=== PATIENT | male | born 1935 | race Caucasian/White ===

== ENCOUNTER 2016-11-06 18:07 | Inpatient (IN) | payer OTHER, BC ==
[~2016-11-06] VITALS: Ht 167.6 cm; Wt 77.8 kg
[~2016-11-06 18:07] MED LIST: ALPHAGAN 0100 DROP/5 RIGHT EYE; AMLODIPINE BESY10 MG PO; CENTRUM SILVER1 EAC3 PO; FLOMAX0.4 MG PO; FLONASE16 G1 BOTH NARES; FUROSEMIDE40 MG PO; IPRATROPIU0.2 MG/1 M IH; LATANOPROST2.5 ML BOTH EYES; LISINOPRIL20 MG PO; LOVASTATIN20 MG PO; LOW DOSE ASPIRI81 M1 PO; PRESERVISIO1 CAPSULE PO; PROAIR HFA8.5 GM IH; PROVENTIL,2.5 MG/3 M IH; SILDENAFIL20 MG PO; SPIRIVA1 INHALATI IH; SYMBICORT60 INHALAT IH; TAMSULOSIN HCL0.4 MG PO
[2016-11-06 18:37] LABS: BASE EXCESS 0.2 mEq/L (-3 to +3); BICARBONATE 26.9 mEq/L (22-26); CARBOXY HGB 1.9 % (0-5); METHEMOGLOBIN 1.4 % (0-1.5); PCO2 51 mm Hg (35-45); PO2 502 mm Hg (80-100); pH 7.33 (7.35-7.45)
[2016-11-06 18:38] LABS: SITE RR
[2016-11-06 18:39] LABS: COMMENTS - BLOOD GASES AC+ pt on 8l cbnt; CONTINUOUS POS AIRWAY PRESSURE 5 cm H2O; DEVICE 840 VENTILATOR; FI02 100 %; MODE NIPPV; PRES. SUPPORT 15 CM/H2O; TOTAL RESP RATE 19 resp/min
[2016-11-06 18:54] LABS: EOSINOPHIL (%) 5.7 % (0-5); EOSINOPHIL COUNT 0.5 K/uL (0-0.3); HEMATOCRIT 40.5 % (38.0-50.0); IMMATURE GRANULOCYTE (%) 0.3 % (0.0-0.7); LYMPHOCYTE COUNT 1.4 K/uL (1.0-2.8); MCH 31.3 PG (29.0-34.0); MCHC 32.6 G/DL (30.0-36.0); MEAN PLAT.VOLUME 9.5 uM^3 (9.0-12.4); MONOCYTE (%) 8.5 % (3-12); MONOCYTE COUNT 0.7 K/uL (0-0.8); NEUTROPHIL (%) 69.1 % (45-76); PLATELET COUNT 226 K/uL (156-360); RBC DIS.WIDTH-CV 12.4 % (11.8-14.6); RBC DIS.WIDTH-SD 43.9 % (39-53); RED BLOOD COUNT 4.22 M/uL (4.00-5.50); WHITE BLOOD COUNT 8.7 K/uL (4.1-10.2)
[2016-11-06 19:00] LABS: INTER. NORMALIZED RATIO 0.9; PROTHROMBIN TIME 10.1 SEC (10.2-12.9)
[2016-11-06 19:03] LABS: PTT 28.5 SEC (25-37)
[2016-11-06 19:07] LABS: CHLORIDE 107 mEq/L (99-109); POTASSIUM 3.8 mEq/L (3.7-5.4); SODIUM 141 mEq/L (136-147)
[2016-11-06 19:08] LABS: MAGNESIUM 2.8 mg/dL (1.3-2.7)
[2016-11-06 19:09] LABS: GLUCOSE 92 mg/dL (70-99)
[2016-11-06 19:10] LABS: ANION GAP 10 MEQ/L (2-14)
[2016-11-06 19:13] LABS: GFR ESTIMATE (CALCULATED) > 59 mL/min/
[2016-11-06 19:14] LABS: UREA NITROGEN (BUN) 12 mg/dL (9-23)
[2016-11-06 19:17] LABS: TROP-I INTERPRETATION NEGATIVE; TROPONIN-I < 0.01 ng/mL (0.0-0.30)
[2016-11-06] MEDS ORDERED: ATROVENT H200 INHALA IH (22:14)
[2016-11-06] MEDS ORDERED: DUONEB 2.5-0.5 M3 ML AEROSOL (22:14)
[2016-11-06 23:55] VITALS: BP 138/72
[2016-11-07 04:33] VITALS: BP 180/83
[2016-11-07 08:25] VITALS: BP 169/83
[2016-11-07 12:18] VITALS: BP 149/71
[2016-11-07 16:46] VITALS: BP 140/65
[2016-11-07 20:01] VITALS: BP 137/64
[2016-11-07 23:56] VITALS: BP 132/68
[2016-11-08 04:03] VITALS: BP 155/80
[2016-11-08 08:18] VITALS: BP 151/86
[2016-11-08 15:38] VITALS: BP 139/62
[2016-11-08 19:27] VITALS: BP 154/75
[2016-11-08 23:04] VITALS: BP 136/72
[2016-11-09 03:58] VITALS: BP 166/75
[2016-11-09 05:57] LABS: ANION GAP 7 MEQ/L (2-14); CHLORIDE 106 MEQ/L (99-109); GFR ESTIMATE (CALCULATED) > 59 mL/min/; POTASSIUM 4.3 MEQ/L (3.7-5.4); SAMPLE HEMOLYSIS CHECK 0; SAMPLE ICTERIC CHECK 0; SAMPLE LIPEMIA CHECK 0; SODIUM 142 MEQ/L (136-147); UREA NITROGEN (BUN) 18 mg/dL (9-23)
[2016-11-09 05:58] LABS: GLUCOSE 141 mg/dL (70-99)
[2016-11-09 08:14] VITALS: BP 167/77
[2016-11-09 16:28] VITALS: BP 151/73
[2016-11-09 19:51] VITALS: BP 141/71
[2016-11-09 23:56] VITALS: BP 153/67
[2016-11-10 04:08] VITALS: BP 157/76
[2016-11-10 08:15] VITALS: BP 163/77
[2016-11-10 09:59] VITALS: BP 177/80
[2016-11-10 10:47] LABS: HEMATOCRIT 44.3 % (38.0-50.0); MCH 31.2 PG (29.0-34.0); MCHC 32.5 G/DL (30.0-36.0); MCV 95.9 FL (86-99); MEAN PLAT.VOLUME 9.9 uM^3 (9.0-12.4); PLATELET COUNT 251 K/uL (156-360); RBC DIS.WIDTH-CV 12.6 % (11.8-14.6); RBC DIS.WIDTH-SD 44.3 % (39-53); RED BLOOD COUNT 4.62 M/uL (4.00-5.50); WHITE BLOOD COUNT 11.6 K/uL (4.1-10.2)
[2016-11-10 11:04] VITALS: BP 156/70
[2016-11-10 11:09] LABS: ANION GAP 6 MEQ/L (2-14); CHLORIDE 103 MEQ/L (99-109); GFR ESTIMATE (CALCULATED) > 59 mL/min/; GLUCOSE 200 mg/dL (70-99); POTASSIUM 4.1 MEQ/L (3.7-5.4); SAMPLE HEMOLYSIS CHECK 0; SAMPLE ICTERIC CHECK 0; SAMPLE LIPEMIA CHECK 0; SODIUM 139 MEQ/L (136-147); UREA NITROGEN (BUN) 22 mg/dL (9-23)
[2016-11-10 11:25] LABS: BICARBONATE 30.5 mEq/L (22-26); CARBOXY HGB 2.1 % (0-5); COMMENTS - BLOOD GASES A+C+; DEVICE NC; METHEMOGLOBIN 1.8 % (0-1.5); O2 FLOW 2 L/MIN; PCO2 47 mm Hg (35-45); PO2 92 mm Hg (80-100); SITE RR; pH 7.42 (7.35-7.45)
[2016-11-10 15:43] VITALS: BP 134/65
[2016-11-10 19:48] VITALS: BP 176/70
[2016-11-11 00:54] VITALS: BP 142/75
[2016-11-11 08:06] VITALS: BP 138/70
[2016-11-11 11:08] VITALS: BP 132/70
[2016-11-11 15:55] VITALS: BP 137/61
[2016-11-11 19:09] LABS: POINT-OF-CARE METER ID UU14208753
[2016-11-11 19:52] VITALS: BP 170/84
[2016-11-11 23:42] VITALS: BP 147/67
[2016-11-12 03:55] VITALS: BP 177/76
[2016-11-12 07:27] VITALS: BP 148/82
[2016-11-12 15:53] VITALS: BP 148/68
[2016-11-12 20:35] VITALS: BP 148/68
[2016-11-13 00:31] VITALS: BP 120/60
[2016-11-13 03:48] VITALS: BP 142/68
[2016-11-13 08:00] VITALS: BP 173/77
[2016-11-13] MEDS ORDERED: PREDNISONE20 MG PO ×2 (09:12→09:18)
[2016-11-13] MEDS ORDERED: POLYETHYLENE GL17 GM PO (09:12)
[2016-11-13] MEDS ORDERED: CEFTIN500 MG PO (09:12)
[2016-11-13] MEDS ORDERED: DOCUSATE SODIU100 MG PO (09:12)
[2016-11-13 11:51] VITALS: BP 144/63
== END 2016-11-13 15:50 | disposition home health service (06) | DRG 191 ==
LOC: EME 18:07 → 3EAST 21:19 → EDOF 21:19 → ENRESERV 21:22 → CANRESERV 21:22 → ENRESERV 21:34 → 3EAST 22:50
PROVIDERS: Emergency Medicine; Family Medicine; Internal Medicine
DX: J44.0 Chronic obstructive pulmonary disease with (acute) lower respiratory infection (principal); J96.11 Chronic respiratory failure with hypoxia; Z94.2 Lung transplant status; R06.89 Other abnormalities of breathing; Z99.81 Dependence on supplemental oxygen; J44.1 Chronic obstructive pulmonary disease with (acute) exacerbation; J20.9 Acute bronchitis, unspecified; I10 Essential (primary) hypertension; I45.10 Unspecified right bundle-branch block; K59.00 Constipation, unspecified; Z85.118 Personal history of other malignant neoplasm of bronchus and lung; R73.9 Hyperglycemia, unspecified; T38.0X5A Adverse effect of glucocorticoids and synthetic analogues, initial encounter; Z87.891 Personal history of nicotine dependence
CPT/HCPCS: 36600; 71010; 80048; 82803; 82948; 83735; 84484; 85025; 85027; 85610; 85730; 93005; 94002; 94640; 94640 76; 94644; 94667; 94668; 94760; 94799; 99202; 99281; 99285; J0456; J0696; J1100; J1650; J1815; J1940; J2930; J3475; J7030; J7050; J7512; J7644

== ENCOUNTER 2017-01-27 19:52 | Inpatient (IN) | payer OTHER, BC ==
[~2017-01-27] VITALS: Ht 167.6 cm; Wt 73.1 kg
[~2017-01-27 19:52] MED LIST changes: +ATROVENT H200 INHALA IH; +CEFTIN500 MG PO; +DOCUSATE SODIU100 MG PO; +DUONEB 2.5-0.5 M3 ML AEROSOL; +POLYETHYLENE GL17 GM PO; +PREDNISONE20 MG PO
[2017-01-27 20:40] LABS: HEMATOCRIT 39.9 % (38.0-50.0); MCHC 33.3 G/DL (30.0-36.0); MCV 96.1 FL (86-99); MEAN PLAT.VOLUME 9.1 uM^3 (9.0-12.4); PLATELET COUNT 242 K/uL (156-360); RBC DIS.WIDTH-CV 12.7 % (11.8-14.6); RBC DIS.WIDTH-SD 44.9 % (39-53); RED BLOOD COUNT 4.15 M/uL (4.00-5.50); WHITE BLOOD COUNT 5.8 K/uL (4.1-10.2)
[2017-01-27 20:52] LABS: CHLORIDE 104 mEq/L (99-109); POTASSIUM 3.7 mEq/L (3.7-5.4); SODIUM 141 mEq/L (136-147)
[2017-01-27 20:53] LABS: GLUCOSE 98 mg/dL (70-99)
[2017-01-27 20:55] LABS: ANION GAP 11 MEQ/L (2-14)
[2017-01-27 20:57] LABS: GFR ESTIMATE (CALCULATED) > 59 mL/min/
[2017-01-27 20:58] LABS: UREA NITROGEN (BUN) 10 mg/dL (9-23)
[2017-01-27 21:40] LABS: TROP-I INTERPRETATION NEGATIVE; TROPONIN-I 0.01 ng/mL (0.0-0.30)
[2017-01-27 21:47] LABS: BASE EXCESS 3.7 mEq/L (-3 to +3); BICARBONATE 29.7 mEq/L (22-26); CARBOXY HGB 2.1 % (0-5); METHEMOGLOBIN 1.4 % (0-1.5); PCO2 49 mm Hg (35-45); PO2 92 mm Hg (80-100); pH 7.39 (7.35-7.45)
[2017-01-27 21:48] LABS: COMMENTS - BLOOD GASES C+; DEVICE BREATHING TREATMENT; O2 FLOW 7 L/MIN; SITE RIGHT BRACHIAL; TOTAL RESP RATE 21 resp/min
[2017-01-27] MEDS ORDERED: TAMSULOSIN HCL0.4 MG PO (23:55)
[2017-01-27] MEDS ORDERED: ATROVENT 00.5 MG/2.5 IH (23:56)
[2017-01-27] MEDS ORDERED: SIMBRINZA 1%-0.28 ML RIGHT EYE (23:57)
[2017-01-27] MEDS ORDERED: ALBUTEROL2.5 MG/3 M IH (23:58)
[2017-01-28] VITALS (7 sets, daily range): BP systolic 127–165; BP diastolic 60–74
[2017-01-28] MEDS ORDERED: MIRALAX17 GM PO (00:02)
[2017-01-28] MEDS ORDERED: MUCINEX1200 MG PO (00:04)
[2017-01-28] MEDS ORDERED: ALEVE220 MG PO (00:05)
[2017-01-28 07:21] LABS: TROP-I INTERPRETATION NEGATIVE; TROPONIN-I < 0.01 ng/mL (0.0-0.30)
[2017-01-28 15:09] LABS: TROP-I INTERPRETATION NEGATIVE; TROPONIN-I < 0.01 ng/mL (0.0-0.30)
[2017-01-29 00:10] VITALS: BP 141/68
[2017-01-29 04:27] VITALS: BP 143/72
[2017-01-29 08:19] VITALS: BP 143/65
[2017-01-29 11:55] VITALS: BP 134/66
[2017-01-29 16:18] VITALS: BP 149/71
[2017-01-29 23:20] VITALS: BP 146/70
[2017-01-30 03:46] VITALS: BP 138/65
[2017-01-30 12:13] VITALS: BP 145/66
[2017-01-30 16:30] VITALS: BP 150/71
[2017-01-30 19:31] VITALS: BP 151/70
[2017-01-30 23:14] VITALS: BP 140/64
[2017-01-31 04:13] VITALS: BP 137/63
[2017-01-31] MEDS ORDERED: PREDNISONE20 MG PO (07:43)
[2017-01-31] MEDS ORDERED: AMOXICILLIN500 MG PO (07:43)
[2017-01-31 08:07] VITALS: BP 141/67
== END 2017-01-31 12:50 | disposition home or self-care (01) | DRG 191 ==
LOC: EME 19:52 → EDOF 22:58 → 3EAST 22:58 → ENRESERV 23:22 → 3EAST 01-28 01:35
PROVIDERS: Emergency Medicine; Family Medicine; Internal Medicine
DX: J44.0 Chronic obstructive pulmonary disease with (acute) lower respiratory infection (principal); I10 Essential (primary) hypertension; C34.90 Malignant neoplasm of unspecified part of unspecified bronchus or lung; J20.9 Acute bronchitis, unspecified; J44.1 Chronic obstructive pulmonary disease with (acute) exacerbation; J96.10 Chronic respiratory failure, unspecified whether with hypoxia or hypercapnia; E78.5 Hyperlipidemia, unspecified; N40.0 Benign prostatic hyperplasia without lower urinary tract symptoms; Z96.659 Presence of unspecified artificial knee joint; Z87.891 Personal history of nicotine dependence; Z99.81 Dependence on supplemental oxygen; Z85.118 Personal history of other malignant neoplasm of bronchus and lung
CPT/HCPCS: 36600; 71020; 71250; 80048; 82803; 83880; 84484; 85027; 85379; 93005; 94640; 94640 76; 94760; 94799; 99202; 99281; 99285; J0456; J1100; J1650; J2930; J7512

== ENCOUNTER 2017-05-22 18:02 | Inpatient (IN) | payer OTHER, BC ==
[~2017-05-22] VITALS: Ht 167.6 cm; Wt 80.8 kg
[~2017-05-22 18:02] MED LIST changes: +ALBUTEROL2.5 MG/3 M IH; +ALEVE220 MG PO; +AMOXICILLIN500 MG PO; +ATROVENT 00.5 MG/2.5 IH; -LATANOPROST2.5 ML BOTH EYES; +LATANOPROST2.5 ML RIGHT EYE; +MIRALAX17 GM PO; +MUCINEX1200 MG PO; +SIMBRINZA 1%-0.28 ML RIGHT EYE
[2017-05-22 18:27] LABS: BASE EXCESS 0.8 mEq/L (-3 to +3); BICARBONATE 26.6 mEq/L (22-26); CARBOXY HGB 2.3 % (0-5); METHEMOGLOBIN 1.2 % (0-1.5); PCO2 46 mm Hg (35-45); pH 7.37 (7.35-7.45)
[2017-05-22 18:28] LABS: COMMENTS - BLOOD GASES A+C+; DEVICE NC; O2 FLOW 2 L/MIN; PO2 73 mm Hg (80-100); SITE RR
[2017-05-22 18:38] LABS: BASOPHIL (%) 0.2 % (0-1); EOSINOPHIL (%) 0.4 % (0-5); EOSINOPHIL COUNT 0.1 K/uL (0-0.3); HEMATOCRIT 39.4 % (38.0-50.0); IMMATURE GRANULOCYTE (%) 0.7 % (0.0-0.7); LYMPHOCYTE (%) 9.1 % (15-42); LYMPHOCYTE COUNT 1.3 K/uL (1.0-2.8); MONOCYTE (%) 5.6 % (3-12); MONOCYTE COUNT 0.8 K/uL (0-0.8); NEUTROPHIL COUNT 12.2 K/uL (1.8-6.4); PLATELET COUNT 223 K/uL (156-360); RBC DIS.WIDTH-CV 12.9 % (11.8-14.6); RBC DIS.WIDTH-SD 45.8 % (39-53); RED BLOOD COUNT 4.06 M/uL (4.00-5.50); WHITE BLOOD COUNT 14.5 K/uL (4.1-10.2)
[2017-05-22 18:48] LABS: ALBUMIN 4.4 g/dL (3.2-4.8); CHLORIDE 103 mEq/L (99-109); POTASSIUM 3.8 mEq/L (3.7-5.4); SODIUM 139 mEq/L (136-147)
[2017-05-22 18:51] LABS: GLUCOSE 102 mg/dL (70-99); TOTAL PROTEIN 6.3 g/dL (6.4-8.3)
[2017-05-22 18:53] LABS: TOTAL BILIRUBIN 1.4 mg/dL (0.0-1.0)
[2017-05-22 18:54] LABS: ALKALINE PHOSPHATASE 65 IU/L (3-129)
[2017-05-22 18:55] LABS: CREATININE 0.7 mg/dL (0.6-1.3); GFR ESTIMATE (CALCULATED) > 59 mL/min/ (58.99-99999)
[2017-05-22 18:56] LABS: AST (GOT) 29 IU/L (2-34); UREA NITROGEN (BUN) 17 mg/dL (9-23)
[2017-05-22 18:57] LABS: ALT (GPT) 29 IU/L (3-49)
[2017-05-22 19:01] LABS: TROP-I INTERPRETATION NEGATIVE; TROPONIN-I 0.03 ng/mL (0.0-0.30)
[2017-05-22] MEDS ORDERED: ADVIL,NUPRIN,M200 MG PO (19:57)
[2017-05-22] MEDS ORDERED: LUMIGAN 0.50 DROP/22 RIGHT EYE (19:58)
[2017-05-22] MEDS ORDERED: ALBUTEROL2.5 MG/3 M IH (19:59)
[2017-05-22] MEDS ORDERED: PREDNISONE10 MG PO (19:59)
[2017-05-22] MEDS ORDERED: ATROVENT 00.5 MG/2.5 IH (19:59)
[2017-05-23 00:12] VITALS: BP 152/86
[2017-05-23 07:23] VITALS: BP 164/72
[2017-05-23 12:13] VITALS: BP 138/58
[2017-05-23 12:22] LABS: BASE EXCESS 1.6 mEq/L (-3 to +3); BICARBONATE 28.2 mEq/L (22-26); CARBOXY HGB 2.5 % (0-5); METHEMOGLOBIN 1.9 % (0-1.5); PCO2 51 mm Hg (35-45); PO2 344 mm Hg (80-100); pH 7.35 (7.35-7.45)
[2017-05-23 12:23] LABS: COMMENTS - BLOOD GASES A+C+; DEVICE NBRM; FI02 100 %; O2 FLOW 15 L/MIN; SITE LR; TOTAL RESP RATE 26 resp/min
[2017-05-23 12:39] LABS: CHLORIDE 106 MEQ/L (99-109); MAGNESIUM 2.2 mg/dl (1.3-2.7); POTASSIUM 4.1 MEQ/L (3.7-5.4); SODIUM 140 MEQ/L (136-147)
[2017-05-23 12:44] LABS: CREATININE 0.6 MG/DL (0.6-1.3); GFR ESTIMATE (CALCULATED) > 59 mL/min/ (58.99-99999); GLUCOSE 110 mg/dL (70-99); UREA NITROGEN (BUN) 19 mg/dL (9-23)
[2017-05-23 12:47] LABS: TROP-I INTERPRETATION NEGATIVE; TROPONIN-I 0.01 ng/mL (0.0-0.30)
[2017-05-23 16:30] VITALS: BP 152/86
[2017-05-23 19:12] VITALS: BP 148/60
[2017-05-23 22:29] VITALS: BP 138/56
[2017-05-24 04:03] VITALS: BP 124/66
[2017-05-24 06:48] LABS: HEMATOCRIT 37.3 % (38.0-50.0); MCH 31.7 PG (29.0-34.0); MCHC 32.2 G/DL (30.0-36.0); MCV 98.7 FL (86-99); PLATELET COUNT 193 K/uL (156-360); RBC DIS.WIDTH-CV 13.1 % (11.8-14.6); RED BLOOD COUNT 3.78 M/uL (4.00-5.50); WHITE BLOOD COUNT 13.9 K/uL (4.1-10.2)
[2017-05-24 07:44] VITALS: BP 152/72
[2017-05-24 11:11] LABS: BASE EXCESS 2.9 mEq/L (-3 to +3); CARBOXY HGB 2.8 % (0-5); COMMENTS - BLOOD GASES A+C+; DEVICE NC; METHEMOGLOBIN 2.1 % (0-1.5); O2 FLOW 3 L/MIN; PCO2 49 mm Hg (35-45); PO2 85 mm Hg (80-100); SITE RR; TOTAL RESP RATE 24 resp/min; pH 7.38 (7.35-7.45)
[2017-05-24 12:02] VITALS: BP 178/72
[2017-05-24 16:29] VITALS: BP 142/66
[2017-05-24 18:54] VITALS: BP 112/52
[2017-05-24 23:04] VITALS: BP 122/58
[2017-05-25 03:57] VITALS: BP 124/56
[2017-05-25 07:57] VITALS: BP 134/66
[2017-05-25 12:06] VITALS: BP 142/69
[2017-05-25 16:21] VITALS: BP 130/64
[2017-05-25 19:46] VITALS: BP 154/76
[2017-05-25 23:46] VITALS: BP 130/72
[2017-05-26 06:34] LABS: BASOPHIL (%) 0.1 % (0-1); EOSINOPHIL (%) 0 % (0-5); HEMOGLOBIN 12.5 G/DL (12.5-16.6); IMMATURE GRANULOCYTE (%) 0.6 % (0.0-0.7); LYMPHOCYTE (%) 6.6 % (15-42); LYMPHOCYTE COUNT 0.7 K/uL (1.0-2.8); MCH 31.3 PG (29.0-34.0); MCHC 31.3 G/DL (30.0-36.0); MONOCYTE (%) 9.6 % (3-12); NEUTROPHIL (%) 83.1 % (45-76); NEUTROPHIL COUNT 8.7 K/uL (1.8-6.4); PLATELET COUNT 208 K/uL (156-360); RBC DIS.WIDTH-CV 13.2 % (11.8-14.6); RBC DIS.WIDTH-SD 49.1 % (39-53); WHITE BLOOD COUNT 10.5 K/uL (4.1-10.2)
[2017-05-26 06:50] VITALS: BP 122/64
[2017-05-26 07:08] LABS: CHLORIDE 103 MEQ/L (99-109); CREATININE 0.9 MG/DL (0.6-1.3); GFR ESTIMATE (CALCULATED) > 59 mL/min/ (58.99-99999); POTASSIUM 4.2 MEQ/L (3.7-5.4); SODIUM 139 MEQ/L (136-147)
[2017-05-26 07:09] LABS: GLUCOSE 80 mg/dL (70-99); UREA NITROGEN (BUN) 31 mg/dL (9-23)
[2017-05-26 15:00] VITALS: BP 118/58
[2017-05-27 00:25] VITALS: BP 113/64
[2017-05-27 06:22] LABS: HEMATOCRIT 38.8 % (38.0-50.0); HEMOGLOBIN 12.3 G/DL (12.5-16.6); MCH 31.6 PG (29.0-34.0); MCHC 31.7 G/DL (30.0-36.0); MCV 99.7 FL (86-99); PLATELET COUNT 198 K/uL (156-360); RBC DIS.WIDTH-CV 13.4 % (11.8-14.6); RBC DIS.WIDTH-SD 49.5 % (39-53); RED BLOOD COUNT 3.89 M/uL (4.00-5.50); WHITE BLOOD COUNT 6.6 K/uL (4.1-10.2)
[2017-05-27 06:45] LABS: ALBUMIN 3.4 G/DL (3.2-4.8); ALKALINE PHOSPHATASE 44 IU/L (3-129); ALT (GPT) 15 IU/L (3-49); AST (GOT) 12 IU/L (2-34); CHLORIDE 106 MEQ/L (99-109); CREATININE 0.8 MG/DL (0.6-1.3); GFR ESTIMATE (CALCULATED) > 59 mL/min/ (58.99-99999); GLUCOSE 78 mg/dL (70-99); POTASSIUM 4.3 MEQ/L (3.7-5.4); SODIUM 141 MEQ/L (136-147); TOTAL BILIRUBIN 0.7 MG/DL (0.0-1.0); TOTAL PROTEIN 4.9 G/DL (6.4-8.3); UREA NITROGEN (BUN) 28 mg/dL (9-23)
[2017-05-27 07:30] VITALS: BP 126/58
[2017-05-27 11:46] VITALS: BP 142/60
[2017-05-27 15:44] VITALS: BP 122/56
[2017-05-27 20:46] VITALS: BP 157/70
[2017-05-27 22:19] VITALS: BP 140/58
[2017-05-28] VITALS (8 sets, daily range): BP systolic 106–156; BP diastolic 53–72
[2017-05-29 03:40] VITALS: BP 132/62
[2017-05-29 07:41] VITALS: BP 142/56
== END 2017-05-29 11:52 | disposition home health service (06) | DRG 515 ==
LOC: EME 18:02 → EDOF 20:05 → 5EAST 20:05 → ENRESERV 20:11 → 5EAST 22:08 → ENPENDDIS 05-29 → 5EAST 05-29 11:52
PROVIDERS: Emergency Medicine; Family Medicine; Hospitalist; Internal Medicine; Internal Medicine Pulmonary Disease
PROC: 0PU43JZ Supplement Thoracic Vertebra with Synthetic Substitute, Percutaneous Approach (ICD-10-PCS; principal; 2017-05-27)
DX: M80.88XA Other osteoporosis with current pathological fracture, vertebra(e), initial encounter for fracture (principal); J44.1 Chronic obstructive pulmonary disease with (acute) exacerbation; J96.01 Acute respiratory failure with hypoxia; J96.02 Acute respiratory failure with hypercapnia; X50.9XXA Other and unspecified overexertion or strenuous movements or postures, initial encounter; T38.0X5A Adverse effect of glucocorticoids and synthetic analogues, initial encounter; Z99.81 Dependence on supplemental oxygen; E87.2 Acidosis; I10 Essential (primary) hypertension; M41.9 Scoliosis, unspecified; N40.0 Benign prostatic hyperplasia without lower urinary tract symptoms; E78.5 Hyperlipidemia, unspecified; K59.00 Constipation, unspecified; I77.9 Disorder of arteries and arterioles, unspecified; Z85.118 Personal history of other malignant neoplasm of bronchus and lung; Z90.2 Acquired absence of lung [part of]; Z87.891 Personal history of nicotine dependence; Z60.2 Problems related to living alone; Z96.659 Presence of unspecified artificial knee joint
CPT/HCPCS: 36600; 71045; 71275; 72070; 72146; 80048; 80053; 82803; 82948; 83735; 83880; 84484; 85025; 85027; 85379; 93005; 94640; 94640 76; 94760; 94799; 99202; 99281; 99285; J0330; J0456; J0690; J1100; J1650; J1940; J2270; J2405; J2930; J3010; J3475; J7512; J7644

== ENCOUNTER 2017-06-02 12:29 | Inpatient (IN) | payer OTHER, BC ==
[~2017-06-02] VITALS: Ht 168.9 cm; Wt 78.6 kg
[~2017-06-02 12:29] MED LIST changes: +ADVIL,NUPRIN,M200 MG PO; +LUMIGAN 0.50 DROP/22 RIGHT EYE; +PREDNISONE10 MG PO
[2017-06-02 13:20] LABS: HEMATOCRIT 35.1 % (38.0-50.0); HEMOGLOBIN 11.7 G/DL (12.5-16.6); MCH 32.4 PG (29.0-34.0); MCHC 33.3 G/DL (30.0-36.0); MCV 97.2 FL (86-99); PLATELET COUNT 190 K/uL (156-360); RBC DIS.WIDTH-CV 12.4 % (11.8-14.6); RBC DIS.WIDTH-SD 44.3 % (39-53); RED BLOOD COUNT 3.61 M/uL (4.00-5.50); WHITE BLOOD COUNT 8.9 K/uL (4.1-10.2)
[2017-06-02 13:40] LABS: TROP-I INTERPRETATION NEGATIVE; TROPONIN-I 0.01 ng/mL (0.0-0.30)
[2017-06-02 13:44] LABS: CHLORIDE 102 MEQ/L (99-109); POTASSIUM 3.5 MEQ/L (3.7-5.4); SODIUM 139 MEQ/L (136-147)
[2017-06-02 13:51] LABS: CREATININE 0.9 MG/DL (0.6-1.3); GFR ESTIMATE (CALCULATED) > 59 mL/min/ (58.99-99999); GLUCOSE 94 mg/dL (70-99); UREA NITROGEN (BUN) 15 mg/dL (9-23)
[2017-06-02 20:47] VITALS: BP 175/74
[2017-06-03 00:01] VITALS: BP 134/65
[2017-06-03 04:38] VITALS: BP 136/68
[2017-06-03 07:31] VITALS: BP 139/75
[2017-06-03 11:41] VITALS: BP 154/67
[2017-06-03 19:44] VITALS: BP 148/65
[2017-06-03 23:01] VITALS: BP 125/62
[2017-06-04 04:07] VITALS: BP 131/64
[2017-06-04 07:16] VITALS: BP 130/61
[2017-06-04 12:00] VITALS: BP 123/60
[2017-06-04 15:33] VITALS: BP 129/58
[2017-06-04 19:45] VITALS: BP 130/63
[2017-06-04 23:20] VITALS: BP 135/77
[2017-06-05 04:12] VITALS: BP 152/76
[2017-06-05 07:15] VITALS: BP 161/71
[2017-06-05 11:27] VITALS: BP 123/60
[2017-06-05 16:10] VITALS: BP 130/62
[2017-06-05 19:19] VITALS: BP 177/92
[2017-06-05 19:36] LABS: BASE EXCESS 5.2 mEq/L (-3 to +3); BICARBONATE 33.5 mEq/L (22-26); CARBOXY HGB 2.2 % (0-5); COMMENTS - BLOOD GASES A+C+; DEVICE NC; METHEMOGLOBIN 1.9 % (0-1.5); O2 FLOW 5 L/MIN; PCO2 65 mm Hg (35-45); PO2 128 mm Hg (80-100); SITE RR; pH 7.32 (7.35-7.45)
[2017-06-05 19:43] LABS: BASOPHIL (%) 0.2 % (0-1); EOSINOPHIL (%) 0.1 % (0-5); HEMATOCRIT 41.5 % (38.0-50.0); HEMOGLOBIN 13.3 G/DL (12.5-16.6); IMMATURE GRANULOCYTE (%) 0.9 % (0.0-0.7); LYMPHOCYTE (%) 5.9 % (15-42); MCH 31.4 PG (29.0-34.0); MCV 97.9 FL (86-99); MONOCYTE (%) 7.2 % (3-12); MONOCYTE COUNT 1.3 K/uL (0-0.8); NEUTROPHIL (%) 85.7 % (45-76); NEUTROPHIL COUNT 14.9 K/uL (1.8-6.4); RBC DIS.WIDTH-CV 12.6 % (11.8-14.6); RBC DIS.WIDTH-SD 45.3 % (39-53); RED BLOOD COUNT 4.24 M/uL (4.00-5.50); WHITE BLOOD COUNT 17.4 K/uL (4.1-10.2)
[2017-06-05 19:45] LABS: PLATELET COUNT 287 K/uL (156-360)
[2017-06-05 20:04] LABS: TROP-I INTERPRETATION NEGATIVE; TROPONIN-I 0.01 ng/mL (0.0-0.30)
[2017-06-05 20:09] LABS: CHLORIDE 97 MEQ/L (99-109); GFR ESTIMATE (CALCULATED) > 59 mL/min/ (58.99-99999); GLUCOSE 112 mg/dL (70-99); SODIUM 135 MEQ/L (136-147)
[2017-06-05 20:16] LABS: POTASSIUM 5.1 MEQ/L (3.7-5.4); UREA NITROGEN (BUN) 28 mg/dL (9-23)
[2017-06-05 23:15] VITALS: BP 134/84
[2017-06-06 04:45] VITALS: BP 138/68
[2017-06-06 07:30] VITALS: BP 226/113
[2017-06-06 08:28] LABS: BASE EXCESS 4.8 mEq/L (-3 to +3); BICARBONATE 33.5 mEq/L (22-26); CARBOXY HGB 2.6 % (0-5); METHEMOGLOBIN 2.2 % (0-1.5); PCO2 68 mm Hg (35-45); PO2 134 mm Hg (80-100)
[2017-06-06 08:29] LABS: SITE LR
[2017-06-06 08:31] LABS: COMMENTS - BLOOD GASES NAC+; DEVICE HFNC; O2 FLOW 10 L/MIN
[2017-06-06 08:46] LABS: BASOPHIL (%) 0.1 % (0-1); EOSINOPHIL (%) 0 % (0-5); HEMATOCRIT 41.5 % (38.0-50.0); HEMOGLOBIN 12.9 G/DL (12.5-16.6); IMMATURE GRANULOCYTE (%) 1.2 % (0.0-0.7); LYMPHOCYTE (%) 3.9 % (15-42); LYMPHOCYTE COUNT 0.8 K/uL (1.0-2.8); MCH 31.1 PG (29.0-34.0); MCHC 31.1 G/DL (30.0-36.0); NEUTROPHIL (%) 89.8 % (45-76); NEUTROPHIL COUNT 18.2 K/uL (1.8-6.4); PLATELET COUNT 300 K/uL (156-360); RBC DIS.WIDTH-CV 12.7 % (11.8-14.6); RBC DIS.WIDTH-SD 47.5 % (39-53); RED BLOOD COUNT 4.15 M/uL (4.00-5.50); WHITE BLOOD COUNT 20.3 K/uL (4.1-10.2)
[2017-06-06 09:10] LABS: CHLORIDE 94 MEQ/L (99-109); CREATININE 1.4 MG/DL (0.6-1.3); GFR ESTIMATE (CALCULATED) 51 mL/min/ (58.99-99999); GLUCOSE 125 mg/dL (70-99); SODIUM 136 MEQ/L (136-147); UREA NITROGEN (BUN) 42 mg/dL (9-23)
[2017-06-06 09:18] LABS: TROP-I INTERPRETATION NEGATIVE; TROPONIN-I 0.02 ng/mL (0.0-0.30)
[2017-06-06 11:33] VITALS: BP 140/67
[2017-06-06 17:02] VITALS: BP 174/79
[2017-06-06 17:22] VITALS: BP 162/68
[2017-06-06 22:30] VITALS: BP 147/69
[2017-06-07 03:30] VITALS: BP 151/67
[2017-06-07 07:37] VITALS: BP 107/60
[2017-06-07 12:42] VITALS: BP 142/79
[2017-06-07 12:46] LABS: CHLORIDE 96 MEQ/L (99-109); GLUCOSE 170 mg/dL (70-99); POTASSIUM 5.1 MEQ/L (3.7-5.4); SODIUM 136 MEQ/L (136-147); UREA NITROGEN (BUN) 38 mg/dL (9-23)
[2017-06-07 12:54] LABS: CREATININE 0.9 MG/DL (0.6-1.3); GFR ESTIMATE (CALCULATED) > 59 mL/min/ (58.99-99999)
[2017-06-07 17:20] VITALS: BP 144/76
[2017-06-07 18:00] VITALS: BP 138/80
[2017-06-07 23:30] VITALS: BP 132/78
[2017-06-08] VITALS (22 sets, daily range): BP systolic 0–216; BP diastolic 0–143
[2017-06-08 02:20] LABS: BASE EXCESS 7.7 mEq/L (-3 to +3); BICARBONATE 37.7 mEq/L (22-26); CARBOXY HGB 2.6 % (0-5); DEVICE NC; METHEMOGLOBIN 1.8 % (0-1.5); O2 FLOW 5 L/MIN; PCO2 82 mm Hg (35-45); PO2 70 mm Hg (80-100); SITE LR; pH 7.27 (7.35-7.45)
[2017-06-08 02:21] LABS: TOTAL RESP RATE 24 resp/min
[2017-06-08 04:34] LABS: BASE EXCESS 8.7 mEq/L (-3 to +3); BICARBONATE 36.4 mEq/L (22-26); CARBOXY HGB 2.3 % (0-5); METHEMOGLOBIN 1.8 % (0-1.5); PCO2 66 mm Hg (35-45); PO2 94 mm Hg (80-100); SITE RR; pH 7.35 (7.35-7.45)
[2017-06-08 04:35] LABS: COMMENTS - BLOOD GASES C+A+; DEVICE 840 VENT; FI02 30 %; MODE SPONT/NIPPV; PEEP 5 CM/H20; PRES. SUPPORT 15 CM/H2O; TOTAL RESP RATE 12 resp/min
[2017-06-08 09:32] LABS: BASOPHIL (%) 0.1 % (0-1); EOSINOPHIL (%) 0.1 % (0-5); HEMATOCRIT 38.7 % (38.0-50.0); HEMOGLOBIN 12.7 G/DL (12.5-16.6); IMMATURE GRANULOCYTE (%) 0.8 % (0.0-0.7); LYMPHOCYTE (%) 2.1 % (15-42); LYMPHOCYTE COUNT 0.3 K/uL (1.0-2.8); MCH 32.6 PG (29.0-34.0); MCHC 32.8 G/DL (30.0-36.0); MCV 99.5 FL (86-99); MONOCYTE (%) 5.9 % (3-12); MONOCYTE COUNT 0.8 K/uL (0-0.8); NEUTROPHIL COUNT 12.8 K/uL (1.8-6.4); PLATELET COUNT 230 K/uL (156-360); RBC DIS.WIDTH-CV 12.7 % (11.8-14.6); RBC DIS.WIDTH-SD 46.5 % (39-53); RED BLOOD COUNT 3.89 M/uL (4.00-5.50); WHITE BLOOD COUNT 14.1 K/uL (4.1-10.2)
[2017-06-08 09:58] LABS: CHLORIDE 95 MEQ/L (99-109); CREATININE 0.9 MG/DL (0.6-1.3); GFR ESTIMATE (CALCULATED) > 59 mL/min/ (58.99-99999); GLUCOSE 137 mg/dL (70-99); MAGNESIUM 2.9 mg/dl (1.3-2.7); POTASSIUM 5.4 MEQ/L (3.7-5.4); SODIUM 133 MEQ/L (136-147); UREA NITROGEN (BUN) 38 mg/dL (9-23)
[2017-06-08 10:13] LABS: BASE EXCESS 11.4 mEq/L (-3 to +3); CARBOXY HGB 2.5 % (0-5); METHEMOGLOBIN 1.8 % (0-1.5); PCO2 66 mm Hg (35-45); PO2 88 mm Hg (80-100); pH 7.38 (7.35-7.45)
[2017-06-08 10:14] LABS: COMMENTS - BLOOD GASES A+C+; DEVICE N/V VENT; FI02 30 %; MODE SPONT; PEEP 5 CM/H20; PRES. SUPPORT 20 CM/H2O; SITE RR; TOTAL RESP RATE 8 resp/min
[2017-06-09] VITALS (17 sets, daily range): BP systolic 118–159; BP diastolic 50–95
[2017-06-09 05:20] LABS: HEMATOCRIT 34.3 % (38.0-50.0); HEMOGLOBIN 11.2 G/DL (12.5-16.6); MCHC 32.7 G/DL (30.0-36.0); PLATELET COUNT 194 K/uL (156-360); RBC DIS.WIDTH-CV 12.4 % (11.8-14.6); RBC DIS.WIDTH-SD 44.5 % (39-53)
[2017-06-09 05:50] LABS: CHLORIDE 92 MEQ/L (99-109); CREATININE 0.7 MG/DL (0.6-1.3); GFR ESTIMATE (CALCULATED) > 59 mL/min/ (58.99-99999); GLUCOSE 137 mg/dL (70-99); SODIUM 135 MEQ/L (136-147); UREA NITROGEN (BUN) 35 mg/dL (9-23)
[2017-06-09 05:51] LABS: POTASSIUM 4.1 MEQ/L (3.7-5.4)
[2017-06-09 10:08] LABS: BASE EXCESS 11.2 mEq/L (-3 to +3); BICARBONATE 38.4 mEq/L (22-26); CARBOXY HGB 2.7 % (0-5); METHEMOGLOBIN 1.6 % (0-1.5); PCO2 62 mm Hg (35-45)
[2017-06-09 10:09] LABS: COMMENTS - BLOOD GASES A+C+; DEVICE NC; O2 FLOW 2 L/MIN; PO2 56 mm Hg (80-100); SITE RB; TOTAL RESP RATE 18 resp/min
[2017-06-10] VITALS (7 sets, daily range): BP systolic 125–177; BP diastolic 60–86
[2017-06-10] MEDS ORDERED: TRAMADOL HCL50 MG PO (14:50)
[2017-06-10] MEDS ORDERED: FENTANYL1 EAC5 TD (14:50)
[2017-06-10] MEDS ORDERED: PREDNISONE10 MG PO (14:50)
[2017-06-11 04:20] VITALS: BP 158/66
[2017-06-11 08:01] VITALS: BP 118/55
[2017-06-11 12:30] VITALS: BP 170/78
[2017-06-11 16:00] VITALS: BP 137/76
[2017-06-11 16:06] LABS: BASE EXCESS 8.6 mEq/L (-3 to +3); BICARBONATE 37.4 mEq/L (22-26); COMMENTS - BLOOD GASES A+C+; DEVICE NRB; FI02 100 %; METHEMOGLOBIN 2.2 % (0-1.5); O2 FLOW 15 L/MIN; PCO2 71 mm Hg (35-45); PO2 446 mm Hg (80-100); SITE RR; pH 7.33 (7.35-7.45)
[2017-06-11 16:39] LABS: HEMATOCRIT 40.2 % (38.0-50.0); HEMOGLOBIN 13.2 G/DL (12.5-16.6); MCH 31.8 PG (29.0-34.0); MCHC 32.8 G/DL (30.0-36.0); MCV 96.9 FL (86-99); PLATELET COUNT 189 K/uL (156-360); RBC DIS.WIDTH-CV 12.2 % (11.8-14.6); RBC DIS.WIDTH-SD 43.9 % (39-53); RED BLOOD COUNT 4.15 M/uL (4.00-5.50); WHITE BLOOD COUNT 9.9 K/uL (4.1-10.2)
[2017-06-11 16:53] LABS: TROP-I INTERPRETATION NEGATIVE; TROPONIN-I 0.03 ng/mL (0.0-0.30)
[2017-06-11 17:32] LABS: CHLORIDE 89 MEQ/L (99-109); CREATININE 0.8 MG/DL (0.6-1.3); GFR ESTIMATE (CALCULATED) > 59 mL/min/ (58.99-99999); GLUCOSE 138 mg/dL (70-99); POTASSIUM 4.4 MEQ/L (3.7-5.4); SODIUM 130 MEQ/L (136-147); UREA NITROGEN (BUN) 23 mg/dL (9-23)
[2017-06-11 20:07] VITALS: BP 141/66
[2017-06-11 23:47] VITALS: BP 117/61
[2017-06-12 04:21] VITALS: BP 138/64
[2017-06-12 07:43] VITALS: BP 147/65
[2017-06-12 12:06] VITALS: BP 160/72
[2017-06-12 15:53] VITALS: BP 162/84
[2017-06-12 20:40] VITALS: BP 138/73
[2017-06-12 23:29] VITALS: BP 181/81
[2017-06-13 04:18] VITALS: BP 140/73
[2017-06-13 07:10] VITALS: BP 153/97
[2017-06-13] MEDS ORDERED: Salonpas 4% Patch TD (09:34)
[2017-06-13] MEDS ORDERED: LISINOPRIL10 MG PO (09:34)
[2017-06-13] MEDS ORDERED: DILTIAZEM 24HR120 MG PO (09:34)
[2017-06-13] MEDS ORDERED: XOPENEX1.25 MG/0. AEROSOL (09:34)
[2017-06-13 12:21] VITALS: BP 151/90
== END 2017-06-13 14:00 | DRG 190 ==
LOC: EME 12:29 → ENRESERV 15:48 → 4SOUTH 16:24 → EDOF 16:24 → 4EAST 16:24 → 4WEST 16:24 → ENRESERV 19:29 → 4SOUTH 19:59 → ENRESERV 06-05 20:31 → 4EAST 06-05 23:18 → ENRESERV 06-08 02:44 → 4WEST 06-08 02:56 → ENRESERV 06-09 20:32 → 4EAST 06-09 22:03
PROVIDERS: Emergency Medicine; Hospitalist; Internal Medicine; Obstetrics & Gynecology; Surgery
PROC: 5A09457 Assistance with Respiratory Ventilation, 24-96 Consecutive Hours, Continuous Positive Airway Pressure (ICD-10-PCS; principal; 2017-06-08)
DX: J44.1 Chronic obstructive pulmonary disease with (acute) exacerbation (principal); J96.21 Acute and chronic respiratory failure with hypoxia; S22.050D Wedge compression fracture of T5-T6 vertebra, subsequent encounter for fracture with routine healing; J96.22 Acute and chronic respiratory failure with hypercapnia; I48.91 Unspecified atrial fibrillation; I87.2 Venous insufficiency (chronic) (peripheral); I10 Essential (primary) hypertension; M40.209 Unspecified kyphosis, site unspecified; E87.2 Acidosis; G89.29 Other chronic pain; E87.5 Hyperkalemia; F41.9 Anxiety disorder, unspecified; M81.0 Age-related osteoporosis without current pathological fracture; E78.5 Hyperlipidemia, unspecified; Z66 Do not resuscitate; Z96.659 Presence of unspecified artificial knee joint; Z68.34 Body mass index [BMI] 34.0-34.9, adult; Z99.81 Dependence on supplemental oxygen; Z92.21 Personal history of antineoplastic chemotherapy; Z92.3 Personal history of irradiation; Z85.118 Personal history of other malignant neoplasm of bronchus and lung; Z90.2 Acquired absence of lung [part of]
CPT/HCPCS: 36600; 71045; 72070; 80048; 82306; 82803; 82948; 83605; 83735; 83880; 84100; 84484; 85025; 85027; 87070; 87205; 87502; 87641; 93005; 93970; 94002; 94640; 94640 76; 94660; 94667; 94760; 94799; 97530 GO; 97530 GP; 99202; 99281; 99285; J0360; J0456; J1650; J1940; J2060; J2270; J2920; J2930; J3010; J7030; J7512; S0028

== ENCOUNTER 2017-06-17 00:57 | Inpatient (IN) | payer OTHER, BC ==
[~2017-06-17] VITALS: Ht 167.6 cm; Wt 70.6 kg
[~2017-06-17 00:57] MED LIST changes: +DILTIAZEM 24HR120 MG PO; +FENTANYL1 EAC5 TD; +LISINOPRIL10 MG PO; +Salonpas 4% Patch TD; +TRAMADOL HCL50 MG PO; +XOPENEX1.25 MG/0. AEROSOL
[2017-06-17 01:44] LABS: BASOPHIL (%) 0.2 % (0-1); EOSINOPHIL (%) 0.1 % (0-5); HEMATOCRIT 36.2 % (38.0-50.0); HEMOGLOBIN 11.9 G/DL (12.5-16.6); LYMPHOCYTE (%) 1.9 % (15-42); LYMPHOCYTE COUNT 0.4 K/uL (1.0-2.8); MCH 31.6 PG (29.0-34.0); MCHC 32.9 G/DL (30.0-36.0); MCV 96.3 FL (86-99); MONOCYTE (%) 7.1 % (3-12); MONOCYTE COUNT 1.3 K/uL (0-0.8); NEUTROPHIL (%) 89.7 % (45-76); NEUTROPHIL COUNT 16.7 K/uL (1.8-6.4); PLATELET COUNT 188 K/uL (156-360); RBC DIS.WIDTH-CV 12.2 % (11.8-14.6); RBC DIS.WIDTH-SD 43.2 % (39-53); RED BLOOD COUNT 3.76 M/uL (4.00-5.50); WHITE BLOOD COUNT 18.6 K/uL (4.1-10.2)
[2017-06-17 01:56] LABS: CHLORIDE 91 mEq/L (99-109); POTASSIUM 3.5 mEq/L (3.7-5.4); SODIUM 132 mEq/L (136-147)
[2017-06-17 01:57] LABS: GLUCOSE 89 mg/dL (70-99)
[2017-06-17 02:01] LABS: CREATININE 0.7 mg/dL (0.6-1.3); GFR ESTIMATE (CALCULATED) > 59 mL/min/ (58.99-99999)
[2017-06-17 02:02] LABS: UREA NITROGEN (BUN) 14 mg/dL (9-23)
[2017-06-17 02:05] LABS: TROP-I INTERPRETATION NEGATIVE; TROPONIN-I 0.06 ng/mL (0.0-0.30)
[2017-06-17 06:10] VITALS: BP 141/89
[2017-06-17 07:27] VITALS: BP 146/69
[2017-06-17] MEDS ORDERED: ATORVASTATIN CA10 MG PO (09:47)
[2017-06-17] MEDS ORDERED: BREO ELLIPTA I1 EACH IH (09:49)
[2017-06-17] MEDS ORDERED: XALATAN2.5 ML RIGHT EYE (09:50)
[2017-06-17] MEDS ORDERED: MIRALAX17 GM PO (09:50)
[2017-06-17] MEDS ORDERED: CARDIZEM CD120 M1 PO (09:51)
[2017-06-17] MEDS ORDERED: FLEET ENEMA-AD118 ML PR (09:55)
[2017-06-17] MEDS ORDERED: LIDOCARE1 EACH TP (10:00)
[2017-06-17 11:58] VITALS: BP 135/65
[2017-06-17 13:25] LABS: BASE EXCESS 7.6 mEq/L (-3 to +3); BICARBONATE 34.1 mEq/L (22-26); CARBOXY HGB 2.4 % (0-5); METHEMOGLOBIN 2.2 % (0-1.5)
[2017-06-17 13:26] LABS: COMMENTS - BLOOD GASES A+C+; DEVICE HEATED HIGH FLOW; FI02 50 %; O2 FLOW 40 L/MIN; PCO2 55 mm Hg (35-45); PO2 175 mm Hg (80-100); SITE LB; TOTAL RESP RATE 26 resp/min
[2017-06-17 16:38] VITALS: BP 163/76
[2017-06-17 18:09] LABS: HEMOGLOBIN 12.2 G/DL (12.5-16.6); MCHC 33.9 G/DL (30.0-36.0); MCV 94.5 FL (86-99); PLATELET COUNT 206 K/uL (156-360); RBC DIS.WIDTH-CV 12.2 % (11.8-14.6); RBC DIS.WIDTH-SD 42.3 % (39-53); RED BLOOD COUNT 3.81 M/uL (4.00-5.50); WHITE BLOOD COUNT 16.3 K/uL (4.1-10.2)
[2017-06-17 18:39] LABS: TROP-I INTERPRETATION NEGATIVE; TROPONIN-I 0.05 ng/mL (0.0-0.30)
[2017-06-17 18:47] LABS: CHLORIDE 91 MEQ/L (99-109); CREATININE 0.5 MG/DL (0.6-1.3); GFR ESTIMATE (CALCULATED) > 59 mL/min/ (58.99-99999); POTASSIUM 3.6 MEQ/L (3.7-5.4); SODIUM 133 MEQ/L (136-147); UREA NITROGEN (BUN) 13 mg/dL (9-23)
[2017-06-17 19:16] LABS: GLUCOSE 148 mg/dL (70-99)
[2017-06-17 20:55] VITALS: BP 180/75
[2017-06-17 22:39] VITALS: BP 150/68
[2017-06-18 00:18] VITALS: BP 155/65
[2017-06-18 04:16] VITALS: BP 139/60
[2017-06-18 07:00] LABS: BASOPHIL (%) 0.1 % (0-1); EOSINOPHIL (%) 0 % (0-5); HEMATOCRIT 34.5 % (38.0-50.0); HEMOGLOBIN 11.4 G/DL (12.5-16.6); IMMATURE GRANULOCYTE (%) 1.1 % (0.0-0.7); LYMPHOCYTE (%) 2.4 % (15-42); LYMPHOCYTE COUNT 0.3 K/uL (1.0-2.8); MCH 31.7 PG (29.0-34.0); MCV 95.8 FL (86-99); MONOCYTE (%) 4.1 % (3-12); MONOCYTE COUNT 0.6 K/uL (0-0.8); NEUTROPHIL (%) 92.3 % (45-76); NEUTROPHIL COUNT 12.8 K/uL (1.8-6.4); PLATELET COUNT 202 K/uL (156-360); RBC DIS.WIDTH-CV 12.2 % (11.8-14.6); RBC DIS.WIDTH-SD 43.1 % (39-53); WHITE BLOOD COUNT 13.9 K/uL (4.1-10.2)
[2017-06-18 07:29] LABS: CHLORIDE 93 MEQ/L (99-109); CREATININE 0.6 MG/DL (0.6-1.3); GFR ESTIMATE (CALCULATED) > 59 mL/min/ (58.99-99999); GLUCOSE 141 mg/dL (70-99); POTASSIUM 3.7 MEQ/L (3.7-5.4); SODIUM 136 MEQ/L (136-147); UREA NITROGEN (BUN) 15 mg/dL (9-23)
[2017-06-18 08:43] VITALS: BP 155/71
[2017-06-18 12:22] VITALS: BP 157/75
[2017-06-18 14:34] LABS: CHLORIDE 91 MEQ/L (99-109); CREATININE 0.7 MG/DL (0.6-1.3); GFR ESTIMATE (CALCULATED) > 59 mL/min/ (58.99-99999); GLUCOSE 133 mg/dL (70-99); POTASSIUM 3.4 MEQ/L (3.7-5.4); SODIUM 133 MEQ/L (136-147); UREA NITROGEN (BUN) 19 mg/dL (9-23)
[2017-06-18 14:36] LABS: TROP-I INTERPRETATION NEGATIVE; TROPONIN-I 0.04 ng/mL (0.0-0.30)
[2017-06-18 17:18] VITALS: BP 119/60
[2017-06-18 20:58] VITALS: BP 127/70
[2017-06-19 01:00] VITALS: BP 156/102
[2017-06-19 04:55] VITALS: BP 151/69
[2017-06-19 05:49] LABS: HEMOGLOBIN 12.6 G/DL (12.5-16.6); MCHC 32.3 G/DL (30.0-36.0); MCV 96.1 FL (86-99); NRBC (%) 0.1 /100 WBC (0-0); RBC DIS.WIDTH-CV 12.2 % (11.8-14.6); RBC DIS.WIDTH-SD 43.7 % (39-53); RED BLOOD COUNT 4.06 M/uL (4.00-5.50); WHITE BLOOD COUNT 22.9 K/uL (4.1-10.2)
[2017-06-19 06:01] LABS: PLATELET COUNT 271 K/uL (156-360)
[2017-06-19 06:41] LABS: CHLORIDE 88 MEQ/L (99-109); GFR ESTIMATE (CALCULATED) > 59 mL/min/ (58.99-99999); GLUCOSE 132 mg/dL (70-99); SODIUM 132 MEQ/L (136-147)
[2017-06-19 06:49] LABS: POTASSIUM 4.1 MEQ/L (3.7-5.4); UREA NITROGEN (BUN) 31 mg/dL (9-23)
[2017-06-19 07:49] VITALS: BP 134/67
[2017-06-19 11:48] VITALS: BP 107/65
[2017-06-19 16:28] VITALS: BP 151/71
[2017-06-19 21:00] VITALS: BP 134/68
[2017-06-20] VITALS (26 sets, daily range): BP systolic 87–153; BP diastolic 47–134
[2017-06-20 01:38] LABS: BASE EXCESS 9.2 mEq/L (-3 to +3); CARBOXY HGB 3.1 % (0-5); METHEMOGLOBIN 1.6 % (0-1.5)
[2017-06-20 01:39] LABS: BICARBONATE 39.5 mEq/L (22-26); COMMENTS - BLOOD GASES C+; DEVICE NC; O2 FLOW 6 L/MIN; PCO2 86 mm Hg (35-45); PO2 63 mm Hg (80-100); SITE RR; TOTAL RESP RATE 30 resp/min; pH 7.27 (7.35-7.45)
[2017-06-20 03:29] LABS: BASE EXCESS 8.9 mEq/L (-3 to +3); BICARBONATE 37.6 mEq/L (22-26); CARBOXY HGB 2.4 % (0-5); COMMENTS - BLOOD GASES C+A+; DEVICE NIV; FI02 60 %; METHEMOGLOBIN 1.5 % (0-1.5); PCO2 73 mm Hg (35-45); PO2 222 mm Hg (80-100); SITE RR; pH 7.32 (7.35-7.45)
[2017-06-20 03:30] LABS: MODE SPONT; PEEP 5 CM/H20; PRES. SUPPORT 16 CM/H2O; TOTAL RESP RATE 10 resp/min
[2017-06-20 04:45] LABS: HEMOGLOBIN 12.2 G/DL (12.5-16.6); MCH 31.6 PG (29.0-34.0); MCV 95.9 FL (86-99); NRBC (%) 0.1 /100 WBC (0-0); PLATELET COUNT 233 K/uL (156-360); RBC DIS.WIDTH-CV 12.4 % (11.8-14.6); RBC DIS.WIDTH-SD 44.2 % (39-53); RED BLOOD COUNT 3.86 M/uL (4.00-5.50); WHITE BLOOD COUNT 16.9 K/uL (4.1-10.2)
[2017-06-20 04:57] LABS: CHLORIDE 91 mEq/L (99-109); POTASSIUM 4.6 mEq/L (3.7-5.4); SODIUM 133 mEq/L (136-147)
[2017-06-20 04:58] LABS: GLUCOSE 145 mg/dL (70-99)
[2017-06-20 05:02] LABS: GFR ESTIMATE (CALCULATED) 41 mL/min/ (58.99-99999)
[2017-06-20 05:05] LABS: CREATININE 1.7 mg/dL (0.6-1.3); UREA NITROGEN (BUN) 58 mg/dL (9-23)
[2017-06-21] VITALS (24 sets, daily range): BP systolic 110–172; BP diastolic 49–101
[2017-06-21 13:35] LABS: BASOPHIL (%) 0.1 % (0-1); EOSINOPHIL (%) 0 % (0-5); HEMATOCRIT 36.8 % (38.0-50.0); IMMATURE GRANULOCYTE (%) 0.5 % (0.0-0.7); LYMPHOCYTE COUNT 0.3 K/uL (1.0-2.8); MCH 31.2 PG (29.0-34.0); MCHC 32.6 G/DL (30.0-36.0); MCV 95.6 FL (86-99); MONOCYTE (%) 5.6 % (3-12); MONOCYTE COUNT 0.8 K/uL (0-0.8); NEUTROPHIL (%) 91.8 % (45-76); NEUTROPHIL COUNT 13.7 K/uL (1.8-6.4); PLATELET COUNT 196 K/uL (156-360); RBC DIS.WIDTH-CV 12.2 % (11.8-14.6); RBC DIS.WIDTH-SD 42.8 % (39-53); RED BLOOD COUNT 3.85 M/uL (4.00-5.50); WHITE BLOOD COUNT 14.9 K/uL (4.1-10.2)
[2017-06-21 13:57] LABS: TROP-I INTERPRETATION NEGATIVE; TROPONIN-I 0.04 ng/mL (0.0-0.30)
[2017-06-21 13:59] LABS: ALBUMIN 3.8 G/DL (3.2-4.8); ALKALINE PHOSPHATASE 66 IU/L (3-129); ALT (GPT) 30 IU/L (3-49); AST (GOT) 15 IU/L (2-34); CHLORIDE 92 MEQ/L (99-109); GLUCOSE 161 mg/dL (70-99); HIGH-SENS C-REACTIVE PROTEIN 1.81 MG/DL (0.02-0.20); POTASSIUM 4.1 MEQ/L (3.7-5.4); SODIUM 131 MEQ/L (136-147); TOTAL BILIRUBIN 0.7 MG/DL (0.0-1.0); TOTAL PROTEIN 5.5 G/DL (6.4-8.3); UREA NITROGEN (BUN) 50 mg/dL (9-23)
[2017-06-21 14:00] LABS: GFR ESTIMATE (CALCULATED) > 59 mL/min/ (58.99-99999); MAGNESIUM 2.5 mg/dl (1.3-2.7); PHOSPHORUS 2.2 mg/dL (2.5-4.9)
[2017-06-22] VITALS (15 sets, daily range): BP systolic 132–196; BP diastolic 60–107
[2017-06-23] VITALS (25 sets, daily range): BP systolic 134–195; BP diastolic 65–106
[2017-06-24] VITALS (22 sets, daily range): BP systolic 112–187; BP diastolic 61–102
[2017-06-25] VITALS (19 sets, daily range): BP systolic 113–162; BP diastolic 65–112
== END 2017-06-25 19:10 | disposition hospice, home (50) | DRG 189 ==
LOC: EME → EDBD 00:57 → EDOF 03:25 → 4EAST 04:33 → ENRESERV 04:34 → 4EAST 05:56 → ENRESERV 06-20 02:18 → 4WEST 06-20 02:19
PROVIDERS: Emergency Medicine; Hospitalist; Internal Medicine; Surgery
DX: J96.21 Acute and chronic respiratory failure with hypoxia (principal); J10.1 Influenza due to other identified influenza virus with other respiratory manifestations; J96.22 Acute and chronic respiratory failure with hypercapnia; J44.1 Chronic obstructive pulmonary disease with (acute) exacerbation; E87.2 Acidosis; E78.5 Hyperlipidemia, unspecified; E87.1 Hypo-osmolality and hyponatremia; E87.6 Hypokalemia; F41.9 Anxiety disorder, unspecified; H40.9 Unspecified glaucoma; G89.29 Other chronic pain; I10 Essential (primary) hypertension; Z87.891 Personal history of nicotine dependence; I27.20 Pulmonary hypertension, unspecified; I07.1 Rheumatic tricuspid insufficiency; Z85.118 Personal history of other malignant neoplasm of bronchus and lung; Z92.21 Personal history of antineoplastic chemotherapy; Z92.3 Personal history of irradiation; Z90.2 Acquired absence of lung [part of]; Z99.81 Dependence on supplemental oxygen; Z66 Do not resuscitate; I47.1 Supraventricular tachycardia; N40.0 Benign prostatic hyperplasia without lower urinary tract symptoms; I45.10 Unspecified right bundle-branch block
CPT/HCPCS: 36600; 71045; 80048; 80048 91; 80053; 81003; 82803; 83605; 83735; 83880; 84100; 84145 90; 84484; 85025; 85027; 86141; 87040; 87070; 87086; 87205; 87502; 87641; 93005; 93306; 94002; 94003; 94640; 94640 76; 94660; 94760; 94799; 97530 GO; 97530 GP; 99202; 99281; 99285; J0456; J1100; J1650; J1940; J1956; J2060; J2270; J2543; J2920; J2930; J3010; J3370; J7050; J7512; J7644; Q0167; S0028